=== PATIENT | male | born 1950 | race Caucasian/White ===

== ENCOUNTER 2020-04-22 07:56 | Outpatient (CLI) | payer MEDICARE ==
--- NOTE | 2020-04-22 08:17 | ULT ---
ULTRASOUND ABDOMINAL AORTA: HISTORY: Screening for abdominal aortic aneurysm FINDINGS: The abdominal aortic measurements are as follows: Proximal: 1.7 x 1.6 x 1.7cm Mid: 1.5 x 1.7 x 1.6cm Distal: 1.5 x 1.4 x 1.6cm IMPRESSION: No evidence of abdominal aortic aneurysm.
== END 2020-04-22 07:57 | disposition home or self-care (01) ==
LOC: BICULT 07:56
PROVIDERS: ATTEND Family Medicine
DX: Z13.6 Encounter for screening for cardiovascular disorders (principal)
CPT/HCPCS: 76775

== ENCOUNTER 2021-08-13 08:36 | Outpatient (CLI) | payer MEDICARE | END 2021-08-13 08:37 | disposition home or self-care (01) | LOC: TBSIIMAG 08:36 | PROVIDERS: ATTEND Urology | DX: C61 Malignant neoplasm of prostate (principal) | CPT/HCPCS: 72197 ==

== ENCOUNTER 2021-10-27 13:08 | Outpatient (CLI) | payer MEDICARE | END 2021-10-27 13:09 | disposition home or self-care (01) | LOC: SCSRAD 13:08 | PROVIDERS: ATTEND Family Medicine | DX: M54.41 Lumbago with sciatica, right side (principal); M47.816 Spondylosis without myelopathy or radiculopathy, lumbar region | CPT/HCPCS: 72100 ==

== ENCOUNTER 2021-12-17 14:12 | Outpatient (CLI) | payer MEDICARE | END 2021-12-17 14:13 | disposition home or self-care (01) | LOC: TBSIIMAG 14:12 | PROVIDERS: ATTEND Family Medicine | DX: M51.16 Intervertebral disc disorders with radiculopathy, lumbar region (principal); M48.061 Spinal stenosis, lumbar region without neurogenic claudication | CPT/HCPCS: 72148 ==